=== PATIENT | female | born 1990 | race Caucasian/White ===

== ENCOUNTER 2018-02-26 11:36 | Emergency (ER) | payer OTHER ==
[~2018-02-26] VITALS: Ht 162.6 cm; Wt 57.6 kg
[2018-02-26 11:51] VITALS: BP 108/67
[2018-02-26] MEDS ORDERED: Lomotil 2.5mg tab ORAL ONE (12:00)
[2018-02-26 12:15] LABS: APPEARANCE,URINE CLEAR; BILIRUBIN, URINE NEGATIVE (NEGATIVE); GLUCOSE, URINE (UA) NEGATIVE (NEGATIVE); KETONES,URINE NEGATIVE (NEGATIVE); LEUKOCYTE ESTERASE ,URINE 1+ (NEGATIVE); NITRITE,URINE NEGATIVE (NEGATIVE); PH,URINE 6 (4.5-8.0); PROTEIN,URINE NEGATIVE (NEGATIVE); UROBILINOGEN,URINE NORMAL MG/DL (0.0-1.0)
[2018-02-26 12:25] LABS: COLOR,URINE YELLOW
--- NOTE | 2018-02-26 12:38 | Emergency Room Report ---
History of Present Illness General Chief Complaint: Abdominal Pain Source: Patient Present Illness HPI The patient started feeling ill yesterday. She had nausea and diarrhea with abdominal cramping. She felt chills but no fever. She is under a lot of stress at this time and feels this contributed. She denies any dysuria. The stool was brown in color. She denies any unusual foods, ill contacts, recent travel. She tried herbal medicine but it hasn't helped. She states that it is difficult for her to vomit. The pain is diffuse and crampy rated at 7/10. She' s not been ill in this way before. She has recurrent sinus problems. Post nasal drip and recurrent nausea/reflux. Patient denies major medical illnesses. Last menstrual period was normal. 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 Last Menstrual Period: Jan 2018 Reviewed Nursing Documentation: PMH: Agreed; PSxH: Agreed Nursing Documentation-PMH Past Medical History: No History, Except For Review of Systems All Other Systems: negative except mentioned in HPI Physical Exam Vital Signs Date Time Temp Pulse Resp B/P (MAP) Pulse Ox O2 Delivery O2 Flow Rate FiO2 02/26/18 11:40 98.4 72 14 108/67 97 Room Air Sp02 EP Interpretation: reviewed, normal General Appearance: well appearing, no apparent distress, GCS 15 Head: normocephalic Eyes: bilateral eye normal inspection, bilateral eye PERRL ENT: moist mucus membranes Neck: supple Respiratory: lungs clear, normal breath sounds Cardiovascular #1: regular rate, rhythm Cardiovascular #2: 2+ radial (R) Gastrointestinal: normal inspection, normal bowel sounds, no mass, non- distended, no guarding, no rebound, tenderness - minimal tenderness, diffuse, scaphoid Genitourinary: no CVA tenderness Musculoskeletal: back normal, gait/station normal, normal range of motion Neurologic: alert, oriented x3, grossly normal Psychiatric: mood/affect normal Skin: normal inspection, warm/dry Medical Decision Making Diagnostic Impression: Primary Impression: Viral gastroenteritis ER Course Patient presents with chills, nausea and diarrhea with abdominal cramping. Differential includes early , food poisoning, gastroenteritis, pancreatitis amongst others. The patient initially was considered to be evaluated with IV labs. However due to the benign exam and the lack of vomiting the patient will be treated symptomatically with Zofran and LoMotil. In addition to that urinalysis will be checked. Urinalysis is clear. is improved and tolerating oral liquids. Discussed outpatient observation with the patient. She understands to return if she is not doing well. Also her stress was touched upon. Patient stable for outpatient observation and treatment Laboratory Tests Test 02/26/18 12:10 Urine Color Yellow Urine Appearance Clear Urine pH 6 (4.5-8.0) Urine Specific [place] 1.015 (1.005-1.035) Urine Protein Negative (NEGATIVE) Urine Glucose (UA) Negative (NEGATIVE) Urine Ketones Negative (NEGATIVE) Urine Blood 1+ (NEGATIVE) H Urine Nitrite Negative (NEGATIVE) Urine Bilirubin Negative (NEGATIVE) Urine Urobilinogen Normal MG/DL (0.0-1.0) Urine Leukocyte Esterase 1+ (NEGATIVE) H Urine RBC 2-4 /HPF (0 - 2) H Urine WBC 2-4 /HPF (0 - 2) Urine Squamous Epithelial Cells Few /LPF (NONE/OCC) Urine Bacteria Few /HPF (NONE) Urine Mucus Occasional /LPF Urine HCG, Qualitative Negative (NEGATIVE) Last Vital Signs Date Time Temp Pulse Resp B/P (MAP) Pulse Ox O2 Delivery O2 Flow Rate FiO2 02/26/18 12:51 98.0 64 14 110/73 98 Room Air Status: improved Disposition: HOME, SELF-CARE Condition: Improved Scripts Ondansetron Odt* (ZOFRAN ODT*) 4 Mg Tab.rapdis 4 MG BC EVERY 8 HOURS, #16 TAB 0 Refills Prov: Kelton Arrieta MD 02/26/18 Diphenoxylate HCl/Atropine (Lomotil Tablet) 1 Each Tablet 1 EACH PO BID PRN for diarrhea or cramps, #4 TAB Prov: Kelton Arrieta MD 02/26/18 Kelton Arrieta MD Feb 26, 2018 12:38
[2018-02-26] MEDS ORDERED: ONDANSETRON ODT4 MG BC (12:43)
[2018-02-26] MEDS ORDERED: LOMOTIL TABLET1 EAC1 PO (12:43)
[2018-02-26 12:51] VITALS: BP 110/73
== END 2018-02-26 12:53 | disposition home or self-care (01) ==
LOC: EMR 12:16
DX: A08.4 Viral intestinal infection, unspecified (principal); Z91.013 Allergy to seafood
CPT/HCPCS: 81003; 81025; 99283